=== PATIENT | male | born 1980 | race Caucasian/White ===

== ENCOUNTER 2024-09-22 10:47 | Emergency (ER) | payer BC, SELFPAY ==
[2024-09-22] VITALS (37 sets, daily range): BP systolic 107–130; BP diastolic 79–103; PULSE 67–138; RESP 6–22; TEMP 36.1; O2SAT 96–100; BMI 30.3
--- NOTE | 2024-09-22 11:06 | ED.GENADULT ---
HPI - General Adult General Date Seen: 09/22/24 Chief complaint: Arrhythmia/Palpitations Stated complaint: elevated heart rate Time Seen by Provider: 09/22/24 11:06 History of Present Illness HPI narrative: 41 yo M with no past medical history. His father has history of AFib. He presents to the ER this morning because he was at work and noticed some discomfort in the center of his chest and his March of indicated and heart rate of about 130. No previous history of similar palpitations. He got up for work and did his normal routine this morning. While he was in the car at about 730 he recalls onset of a funny feeling in his chest. Not really a pain but discomfort in the central chest and he checked his smart watch which showed that his heart rate was elevated. This is unusual for him because it is never elevated when he is driving his car. When he exercises he can get his heart rate up into the 150s, according to his tracking from his smart watch. He has never had similar episodes of this feeling in his chest and has never had similar alert from his smart watch in the past about elevated heart rhythms. He has no history of AFib or any palpitations. He does not use any stimulants or drugs. He rarely drinks alcohol and had non last night. He had 1 cup of coffee this morning, as he usually does. He has not had any recent travel. No swelling in his legs. No history of thyroid disorders. No history of AFib but he does have family history of AFib in his father. Related Data Home Medications ?Medication ?Instructions ?Recorded ?Confirmed No Known Home Medications 09/22/24 09/22/24 Allergies Allergy/AdvReac Type Severity Reaction Status Date / Time No Known Drug Allergies Allergy Verified 09/22/24 11:02 Exam Narrative: Exam Narrative: Constitutional: Appears well-developed and well-nourished. Alert. Conversant. Non toxic. HENT: Head: Atraumatic. Nose: Nose normal. Mouth/Throat: Oral mucosa is clear and moist. no trismus. Pharynx normal. Tonsils symmetric. No tonsillar enlargement, erythema, or exudate. Mallampati class 1 Eyes: Conjunctivae normal. EOM normal. Pupils equal, round, and reactive to light. No scleral icterus. Neck: Normal range of motion. Neck supple. No tracheal deviation present. No JVD. Normal neck range of motion including full extension. Cardiovascular: Irregularly irregular and tachycardic heart rate 120-150 on the monitor. AFib.. No gallop. No friction rub. No murmur heard. Symmetric radial artery pulses Pulmonary/Chest: Effort normal. No stridor. No respiratory distress. No wheezes. No rales. No rhonchi . No tenderness. Abdominal: Soft. No distension. No mass. No tenderness. No rebound. No guarding. Musculoskeletal: RUE: Normal range of motion. No tenderness. No deformity LUE: Normal range of motion. No tenderness. No deformity RLE: Normal range of motion. No edema. No tenderness. No deformity LLE: Normal range of motion. No edema. No tenderness. No deformity Neurological: Alert and oriented to person, place, and time. Normal strength. CN II-VII intact. No sensory deficit. GCS eye subscore is 4. GCS verbal subscore is 5. GCS motor subscore is 6. Normal coordination Skin: Skin is warm and dry. No rash noted. No pallor. Normal capillary refill. Psychiatric: Normal mood. Normal affect. Very polite and calm. Const: Vital Signs, click to edit/add: Vital Signs - 24 hr 09/22/24 11:03 09/22/24 11:09 09/22/24 11:15 Temperature 97 F L Pulse Rate 96 112 H Pulse Rate [Pulse Oximeter] 138 H Respiratory Rate 20 Blood Pressure Blood Pressure [Le ft Upper Arm] 127/98 H Pulse Oximetry 98 97 [facility] 09/22/24 11:16 09/22/24 11:30 09/22/24 11:31 Temperature Pulse Rate 120 H 116 H 118 H Pulse Rate [Pulse Oximeter] Respiratory Rate 6 L 22 Blood Pressure 121/103 H 111/89 Blood Pressure [Le ft Upper Arm] Pulse Oximetry 98 98 97 [facility] 09/22/24 11:32 09/22/24 11:45 09/22/24 12:00 Temperature Pulse Rate 103 H 97 84 Pulse Rate [Pulse Oximeter] Respiratory Rate Blood Pressure Blood Pressure [Le ft Upper Arm] Pulse Oximetry 96 99 97 [facility] 09/22/24 12:01 09/22/24 12:04 09/22/24 12:08 Temperature Pulse Rate 89 82 80 Pulse Rate [Pulse Oximeter] Respiratory Rate Blood Pressure 130/94 H Blood Pressure [Le ft Upper Arm] Pulse Oximetry 97 97 97 Oxygen Delivery Me thod 09/22/24 12:09 09/22/24 12:11 09/22/24 12:15 Temperature Pulse Rate 82 80 80 Pulse Rate [Pulse Oximeter] Respiratory Rate Blood Pressure 124/79 Blood Pressure [Le ft Upper Arm] Pulse Oximetry 96 97 97 Oxygen Delivery Me thod 09/22/24 12:17 09/22/24 12:30 09/22/24 12:31 Temperature Pulse Rate 84 77 75 Pulse Rate [Pulse Oximeter] Respiratory Rate Blood Pressure 122/83 123/86 Blood Pressure [Le ft Upper Arm] Pulse Oximetry 98 98 98 Oxygen Delivery Me thod 09/22/24 12:32 09/22/24 12:45 09/22/24 12:46 Temperature Pulse Rate 74 74 85 Pulse Rate [Pulse Oximeter] Respiratory Rate 14 Blood Pressure 120/88 Blood Pressure [Le ft Upper Arm] Pulse Oximetry 98 98 99 Oxygen Delivery Me thod 09/22/24 13:00 09/22/24 13:01 09/22/24 13:02 Temperature Pulse Rate 73 71 70 Pulse Rate [Pulse Oximeter] Respiratory Rate 14 15 Blood Pressure 118/91 H Blood Pressure [Le ft Upper Arm] Pulse Oximetry 99 99 100 Oxygen Delivery Me thod 09/22/24 13:15 09/22/24 13:16 09/22/24 13:30 Temperature Pulse Rate 70 76 73 Pulse Rate [Pulse Oximeter] Respiratory Rate 17 Blood Pressure 122/87 Blood Pressure [Le ft Upper Arm] Pulse Oximetry 99 99 99 Oxygen Delivery Me thod 09/22/24 13:31 09/22/24 13:45 09/22/24 13:46 Temperature Pulse Rate 70 67 69 Pulse Rate [Pulse Oximeter] Respiratory Rate 16 18 17 Blood Pressure 117/88 120/84 Blood Pressure [Le ft Upper Arm] Pulse Oximetry 100 99 100 Oxygen Delivery Me thod Course Course ED Course: Recheck-patient was roomed from ER 60 ER stab 1. We were setting him up for potline monitor and preparing for sedation and cardioversion when he spontaneously converted from AFib back to sinus rhythm. Repeat EKG confirms sinus rhythm. Vital Signs Vital signs: Initial Vital Signs Temperature 97 F L 09/22/24 11:03 Temperature Source Temporal Artery Scan 09/22/24 11:03 Pulse Rate 138 H 09/22/24 11:03 Pulse Rhythm Irregular 09/22/24 11:03 Respiratory Rate 20 09/22/24 11:03 Blood Pressure 127/98 H 09/22/24 11:03 Blood Pressure Mean 107 H 09/22/24 11:03 Blood Pressure Position Semi-Fowlers 09/22/24 11:03 Pulse Oximetry 98 09/22/24 11:03 Oxygen Delivery Method Room Air 09/22/24 11:03 Vital Signs Temperature 97 F L 09/22/24 11:03 Pulse Rate 138 H 09/22/24 11:03 Respiratory Rate 20 09/22/24 11:03 Blood Pressure 127/98 H 09/22/24 11:03 Pulse Oximetry 98 09/22/24 11:03 Oxygen Delivery Method Room Air 09/22/24 11:03 Temperature 97 F L 09/22/24 11:03 Pulse Rate 69 09/22/24 13:46 Respiratory Rate 17 09/22/24 13:46 Blood Pressure 120/84 09/22/24 13:46 Pulse Oximetry 100 09/22/24 13:46 Oxygen Delivery Method Room Air 09/22/24 11:03 Medications Administered Medications: Discontinued Medications Generic Name Dose Route Start Last Admin Trade Name Freq PRN Reason Stop Dose Admin Aspirin 324 mg 09/22/24 12:00 09/22/24 12:21 Aspirin 81 Mg Tab.Chew PO 09/22/24 12:01 324 mg ONCE ONE Administration Medical Decision Making MDM Narrative Medical decision making narrative: This patent presents for evaluation of palpitations and a funny feeling in his chest, with very clear onset at 730 this morning, about 3-1/2 hours prior to arrival. This is consistent with atrial fibrillation with rapid ventricular response. Based on acute symptoms less than 48 hours, very clear story, good historian and after obtaining informed consent, we were preparing to do electrical cardioversion when the patient spontaneously converted to sinus rhythm on his own. Initial an EKG show no definite ischemia but he did have some mild discomfort in his chest which I suspect is from the AFib, but we did check delta troponins to look for ACS. They are normal. No evidence for thyroid issues, PE, dissection, drug ingestion, acute electrolyte imbalance, etc. Labs look reassuring. I suspect the chest discomfort was probably just related to the AFib rather than ACS. Repeat EKG after spontaneous conversion looks excellent. Asymptomatic after conversion now and would not hospitalize. Discussed with patient and the patient is in agreement. Would recommend close outpatient follow-up with PCP to arrange outpatient cardiac monitoring and cardiology referral. Since he has numerous, also consider sleep study. He actually lives in [facility] so will follow-up with his doctors at home rather than arrange follow-up here in [place]. His chads Vasc score is 0 making his annual risk for stroke from AFib 0.2%. At this point will hold off on anticoagulation but not needs to discuss this with PCP and Cardiology at follow-up. Precautions for return to his nearest ER reviewed if he has any recurrent symptoms or any other problems. Lab Data Labs: Lab Results 09/22/24 09/22/24 Range/Units 11:45 13:50 WBC 4.18 L (4.50-11.00) K/uL RBC 4.97 (4.30-5.90) m/uL Hgb 15.0 (13.5-17.5) gm/dL Hct 44.3 (37.0-53.0) % MCV 89 (80-100) fL MCH 30 (26-34) pg MCHC 34 (32-36) gm/dL RDW Coeff of Amirah 12.1 (11.5-15.5) % Plt Count 208 (140-440) K/uL Neut % (Auto) 65.5 (42.0-72.0) % Lymph % (Auto) 21.1 (20-44) % Sullivan % (Auto) 10.3 (0.0-11.0) % Eos % (Auto) 1.9 (0.0-7.0) % Baso % (Auto) 1.0 (0.0-3.0) % Neut # (Auto) 2.70 (1.7-7.0) K/uL Lymph # (Auto) 0.90 (0.90-2.90) K/uL Sullivan # (Auto) 0.40 (0.00-0.90) K/UL Eos # (Auto) 0.10 (0.00-0.50) K/uL Baso # (Auto) 0.00 (0.00-0.30) K/uL Abs Immat Gran (auto) 0.00 (0.00-0.30) K/uL Imm/Tot Granulo (auto) 0.2 % Sodium 140 (135-149) mmol/L Potassium 4.3 (3.6-5.1) mmol/L Chloride 106 (96-114) mmol/L Carbon Dioxide 26 (20-32) mmol/L Anion Gap 8 (7-15) mEq/L BUN 19 (5-24) mg/dL Creatinine 1.0 (0.5-1.5) mg/dL Estimated Creat Clear 102.49 Estimated GFR 96 ml/min Glucose 95 (60-115) mg/dL Calcium 9.3 (8.4-10.6) mg/dL Magnesium 2.1 (1.5-2.6) mg/dL TSH 1.170 (0.270-4.200) uIU/mL POC Troponin I 0.00 L (0.01-0.04) ng/ml ECG Data Attestation: I personally reviewed and interpreted this ECG as follows: Interpretation: EKG 1 Atrial fibrillation with rapid ventricular response Rate: 137 PA: Not applicable QRS axis: Normal axis. No pathologic Q-waves. ST segment/T wave: No ST segment elevation or depression QTc: 381 EKG 2 (after spontaneous conversion to sinus) Normal sinus rhythm Rate: 87 PA: 160 QRS axis: Normal axis. Incomplete right bundle-branch block ST segment/T wave: No ST segment elevation or depression. QTc: 421 Discharge Plan Discharge Clinical Impression: Atrial fibrillation with rapid ventricular response Patient Disposition: Home, Self-Care Condition: Stable Instructions: A-fib (Atrial Fibrillation) (ED), Moderate Sedation (ED) Additional Instructions: As we discussed, please follow-up with your regular primary care provider at home an hourly as soon as possible. Ask your regular primary care provider to help arrange an outpatient potline monitor to see if you are having more runs of AFib (for instance, AFib that happens while your asleep). You may is only need a sleep study. Also, ask your regular doctor to arrange referral to Cardiology. Monitor carefully and if you have any more symptoms such as palpitations, chest discomfort, dizzy spells, more symptoms like this morning, or if you have any other concerns return to your nearest ER right away. Prescriptions: No Action No Known Home Medications Stand Alone Forms: [employer] Info Instructions
[2024-09-22 11:59] LABS: Eosinophils Percent Auto 1.9 % (0.0-7.0); Hematocrit 44.3 % (37.0-53.0); Immature Granulocytes Pct Auto 0.2 %; Lymphocytes Percent Auto 21.1 % (20-44); Mean Corpuscular HGB Conc 34 gm/dL (32-36); Mean Corpuscular Hemoglobin 30 pg (26-34); Mean Corpuscular Volume 89 fL (80-100); Monocytes Percent Auto 10.3 % (0.0-11.0); Neutrophils Percent Auto 65.5 % (42.0-72.0); Platelet Count* 208 K/uL (140-440); RDW Coefficient of Variation % 12.1 % (11.5-15.5); Red Blood Count 4.97 m/uL (4.30-5.90); White Blood Count* 4.18 K/uL (4.50-11.00)
[2024-09-22 12:00] LABS: Slide Review Reflex No
[2024-09-22 12:19] LABS: Chloride* 106 mmol/L (96-114)
[2024-09-22 12:20] LABS: Potassium* 4.3 mmol/L (3.6-5.1); Sodium* 140 mmol/L (135-149)
[2024-09-22] MEDS: ASPIRIN 81 MG TAB.CHEW 324 MG PO (12:21)
[2024-09-22 12:22] LABS: Anion Gap 8 mEq/L (7-15); Blood Urea Nitrogen* 19 mg/dL (5-24); Carbon Dioxide* 26 mmol/L (20-32); Est. Creatinine Clearance* 102.49; Estimated Glomerular Filt Rate 96 ml/min
[2024-09-22 12:23] LABS: Calcium* 9.3 mg/dL (8.4-10.6); Glucose* 95 mg/dL (60-115); Magnesium* 2.1 mg/dL (1.5-2.6)
--- OUTSIDE RECORDS SUMMARY | 2024-09-22 13:11 | XMS_ITS | Clinical Summary ---
Author Organization [facility] Address [address], [place] [address] Care Team Providers Care Manager Drug Safety Name Role Phone Mukund Stanley MD Primary Care Provider Source Comments You are receiving this document as you are listed as the primary care provider,follow-up provider, or the patient has been referred to you for consultation.This is in compliance with the Medicare and[facility] EHR Incentive Program,which states Providers who transition their patient to another setting of careor provider of care or refers their patient to another provider of care shouldprovide summary care record for each transition of care or referral. [facility]i Allergies Active Allergy Reactions Criticality Noted Date Comments Alcohol Headache Medium 01/18/2022 Medications aspirin-acetami nophen-caffeine (EXCEDRIN MIGRAINE) 250-250-65 MG tablet Take 2 Tablets by mouth every 6 hours as needed. Active mometasone (ELOCON) 0.1 % ointment Use as needed for underarm irritation 45 g 1 3 Active Active Problems Problem Noted Date Diagnosed Date Chronic tension-type headache, not intractable 1 05/28/2022 Pain, low back 03/10/2018 Overweight 03/10/2018 Depressed mood 03/10/2018 Immunizations Immunization Administration Dates Next Due DTP 12/12/1987,07/04/1983,01/04/1982 [id number] 04/25/2009 Influenza [id number] 04/25/2009 Influenza IIV4 (Quadrivalent) 0.5mL ([id number]) 07/2019,03/10/2018 Influenza, Unspecified Formulation 03/11/2011, Rigoberto COVID-19 Vaccine 08/31/2020 MMR 09/03/1994 Polio, Unspecified Formulation 12/12/1987,1983,01/04/1982 Td (7+ yrs) 09/30/1997 Tdap 03/11/2011 Family History Medical History Relation Name Comments Heart Father Relation Name Status Comments Father Alive Mother Alive Social History Tobacco Use Types Packs/Day Years Used Date Smoking Tobacco: Former Cigarettes Smokeless Tobacco: Former Tobacco Cessation:Counseling Given: Not Answered Alcohol Use Standard Drinks/Week Comments Not Currently 1 (1 standard drink = 0.6 oz pure alcohol) once per month - alcohol causes headaches PHQ-2 Answer Date Recorded PHQ-2 Score 1 03/28/2023 Sex and Gender Information Value Date Recorded Sex Assigned at Not on file 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 Gender Identity Not on file Sexual Orientation Not on file Last Filed Vital Signs Vital Sign Reading Time Taken Comments Blood Pressure 130/87 03/28/2023 1:41 PM CDT Pulse 86 03/28/2023 1:41 PM CDT Temperature - - Respiratory Rate 18 03/28/2023 1:41 PM CDT Oxygen Saturation - - Inhaled Oxygen Concentration - - Weight 97.1 kg (214 lb) 01/18/2022 7:10 AM CDT Height 180.3 cm (5' 11) 03/28/2023 1:41 PM CDT Body Mass Index 29.85 01/18/2022 7:10 AM CDT Plan of Treatment Health Maintenance Due Date Last Done Comments Hep C Screening (Preventive Services) 1981 HIV Screening (Preventive Services) 1997 HepB Vaccine (1) 2000 DTaP/Tdap/Td Vaccine (6 - Tdap) 03/11/2021 03/11/2011, 09/30/1997, 12/12/1987, Additional history exists Adult Preventive Visit 01/19/2024 01/18/2022 COVID-19 Vaccine (2 - season) 2024 08/31/2020 Influenza Vaccine (#1) 2024 , 03/10/2018, 03/11/2011, Additional history exists Cholesterol 01/18/2027 01/18/2022 Zoster/Shingles Vaccine (1 of 2) 10/29/2031 IPV (Polio) Vaccine Completed 12/12/1987, 07/04/1983, 01/04/1982 HPV Vaccine Aged Out No longer eligi ble based on patient's age to complete this topic HepA Vaccine Aged Out No longer eligi ble based on patient's age to complete this topic Hib Vaccine Aged Out No longer eligi ble based on patient's age to complete this topic MCV4 Vaccine Aged Out No longer eligi ble based on patient's age to complete this topic Meningococcal B Vaccine Aged Out No l onger eligible based on patient's age to complete this topic Pneumococcal Vaccine Aged Out No long er eligible based on patient's age to complete this topic Procedures Procedure Name Priority Date/Time Associated Diagnosis Comments LIPID PANEL & DIRECT LDL (IF NEEDED) Routine 01/18/2022 7:32 AM CDT Screening for hyperlipidemia from Last 3 Months or Most Recently Relevant to Health Maintenance Results * Lipid Panel and Direct LDL(If Needed) (01/18/2022 7:32 AM CDT) [facility] Signature Cholesterol 127 0 - 199 mg/dL 01/18/2022 8:05 PM CDT [facility] Triglyceride 31 <=149 mg/dL 01/18/2022 8:05 PM CDT [facility] HDL Cholesterol 48 >=40 mg/dL 01/18/2022 8:05 PM CDT [facility] LDL, Calculated 73 <130 mg/dL 01/18/2022 8:05 PM CDT [facility] Non HDL Chol, Calculated 79 <=159 mg/dL 01/18/2022 8:05 PM CDT [facility] Cholesterol/HDL Ratio 2.6 01/18/2022 8:05 PM CDT [facility] Hours Fasting 12 01/18/2022 8:05 PM CDT [employer] Blood Venipuncture / Unknown 01/18/2022 7:32 AM CDT 01/18/2022 7:32 AM CDT us Courtney Perry ORCHESTRA LEADER, POWER SYSTEMS ENGINEER LAB_1 Bell l Result [facility] [address] [place] [address], [facility] [phone] [employer] [facility] [address] [place] [address], [facility] [phone] from Last 3 Months or Most Recently Relevant to Health [place] [id number] [facility] Care Teams Manager Drug Safety Relationship Specialty Start Date End Date Mukund Stanley MD [address] [place] [id number] PCP - General Family Practice 03/28/23
== END 2024-09-22 14:50 | disposition home or self-care (01) ==
LOC: ED 13:10
PROVIDERS: Emergency Provider Emergency Medicine
DX: I48.91 Unspecified atrial fibrillation (principal)
CPT/HCPCS: 36415; 80048; 83735; 84443; 84484; 85025; 93005; 96374; 99284; A9270